=== PATIENT | male | born 2000 | race Two or more races ===

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

== ENCOUNTER 2020-03-31 12:51 | Emergency (ER) | payer OTHER ==
[2020-03-31 12:59] VITALS: BP 129/71; PULSE 89; RESP 18; TEMP 98
[2020-03-31] MEDS ORDERED: hydrOXYzine HCL 25 MG TAB PO STA (13:16)
[2020-03-31] MEDS ORDERED: PERMETHRIN 5% CREAM 60 GM TUBE TOPICAL ONE (13:16)
[2020-03-31] MEDS ORDERED: dexAMETHasone 4 MG TAB PO STA (13:16)
[2020-03-31] MEDS ORDERED: FAMOTIDINE 20 MG TAB PO STA (13:16)
--- NOTE | 2020-03-31 13:19 | ED ---
Skin/Abscess/FB HPI - General Chief complaint: Skin/Abscess/Foreign Body Stated complaint: rash Time Seen by Provider: 03/31/20 13:09 Source: patient, RN notes reviewed, old records reviewed Mode of arrival: ambulatory Limitations: no limitations - History of Present Illness Initial comments: This is a 20-year-old male presents today for evaluation of rash patient is rash both hands body groin anterior chest areas of his back. 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 MD complaint: rash -: days(s) Tetanus Up to Date: unsure Location: chest, L hand, R hand, buttocks, genitals Severity: moderate Severity scale (1-10): 7 Consistency: constant Improves with: none, immobilization Context: none - Related Data Home Medications Medication Instructions Recorded Confirmed Acetaminophen Tab [Tylenol Tab] 650 mg PO Q6H PRN 10/02/18 10/02/18 Previous Rx's Medication Instructions Recorded Amoxicillin 500 mg PO Q12HR 10 Days #20 cap 10/02/18 hydrOXYzine HCL [Atarax] 25 mg PO TID PRN #30 tab 03/31/20 Allergies Allergy/AdvReac Type Severity Reaction Status Date / Time No Known Allergies Allergy Verified 03/31/20 12:59 Review of Systems ROS Statement: Those systems with pertinent positive or pertinent negative responses have been documented in the HPI. ROS Other: All systems not noted in ROS Statement are negative. Past Medical History Past Medical History: No Reported History History of Any Multi-Drug Resistant Organisms: None Reported Past Surgical History: No Surgical Hx Reported Past Psychological History: Bipolar Smoking Status: Vaper Past Alcohol Use History: Rare Past Drug Use History: Marijuana General Exam - General Exam Comments Initial Comments: Patient does have scabies like rash in between fingers and groin area on anterior abdomen and chest severely pruritic and itching Limitations: no limitations General appearance: alert, in no apparent distress Head exam: Present: atraumatic, normocephalic, normal inspection Eye exam: Present: normal appearance, PERRL, EOMI. Absent: scleral icterus, conjunctival injection, periorbital swelling ENT exam: Present: normal exam, mucous membranes moist Neck exam: Present: normal inspection. Absent: tenderness, meningismus, lymphadenopathy Respiratory exam: Present: normal lung sounds bilaterally. Absent: respiratory distress, wheezes, rales, rhonchi, stridor Cardiovascular Exam: Present: regular rate, normal rhythm, normal heart sounds. Absent: systolic murmur, diastolic murmur, rubs, gallop, clicks GI/Abdominal exam: Present: soft, normal bowel sounds. Absent: distended, tenderness, guarding, rebound, rigid Extremities exam: Present: normal inspection, full ROM, normal capillary refill. Absent: tenderness, pedal edema, joint swelling, calf tenderness Back exam: Present: normal inspection Neurological exam: Present: alert, oriented X3, CN II-XII intact Psychiatric exam: Present: normal affect, normal mood Skin exam: Present: warm, dry, intact, normal color. Absent: rash Course Vital Signs 03/31/20 12:56 Temperature 98 F Pulse Rate 89 Respiratory 18 Rate Blood Pressure 129/71 O2 Sat by Pulse 100 Oximetry - Reevaluation(s) Reevaluation #1: 03/31/20 13:17 Medical records reviewed Reevaluation #2: 03/31/20 13:18 Patient informed of findings, questions answered, understands 1 application Medical Decision Making - Medical Decision Making 20 male DF for evaluation of rash patient has scabies-like rash in between fingers and throughout body. Patient will be given medication here in the ER as well as itching medication. Patient can be discharged home Disposition Clinical Impression: Scabies Disposition: HOME SELF-CARE Condition: Good Instructions (If sedation given, give patient instructions): Scabies (ED) Prescriptions: hydrOXYzine HCL [Atarax] 25 mg PO TID PRN #30 tab PRN Reason: Itching Is patient prescribed a controlled substance at d/c from ED?: No Referrals: None,Stated [Primary Care Provider] - 1-2 days
== END 2020-03-31 13:56 | disposition home or self-care (01) ==
LOC: EC 12:51
DX: B86 Scabies (principal); F17.290 Nicotine dependence, other tobacco product, uncomplicated
CPT/HCPCS: 99283; J8540

== ENCOUNTER 2020-04-18 09:19 | Emergency (ER) | payer OTHER ==
[2020-04-18 09:26] VITALS: BP 129/79; PULSE 99; RESP 18; TEMP 97.1
[2020-04-18] MEDS ORDERED: predniSONE 50 MG TAB PO STA (09:41)
--- NOTE | 2020-04-18 09:43 | ED ---
Skin/Abscess/FB HPI - General Chief complaint: Skin/Abscess/Foreign Body Stated complaint: rash Time Seen by Provider: 04/18/20 09:26 Source: patient Mode of arrival: ambulatory Limitations: no limitations - History of Present Illness Initial comments: 20yo male presenting to the ER today for cc of rash. Patient states he was concerned of bed bugs 2 weeks ago after using cream and itching medications it went away. He states it returned. He states that he used a tiny bit of the left over permethrin which seemed to improve the area slightly. Patient denies penile lesions, dysuria, headaches, fevers, cough, URI symptoms. Dneies odors from rash. Denies night sweats. Patient denies additional complaints. Upon arrival he appears well nontoxic, afebrile in no acute distress. - Related Data Home Medications Medication Instructions Recorded Confirmed No Known Home Medications 04/18/20 04/18/20 Previous Rx's Medication Instructions Recorded Permethrin 5% Cream [Elimite] 1 applic TOPICAL ONCE 1 Days #30 04/18/20 cream..g. predniSONE 50 mg PO DAILY 4 Days #4 tab 04/18/20 Allergies Allergy/AdvReac Type Severity Reaction Status Date / Time No Known Allergies Allergy Verified 04/18/20 09:40 Review of Systems ROS Statement: Those systems with pertinent positive or pertinent negative responses have been documented in the HPI. ROS Other: All systems not noted in ROS Statement are negative. Past Medical History Past Medical History: No Reported History History of Any Multi-Drug Resistant Organisms: None Reported Past Surgical History: No Surgical Hx Reported Past Psychological History: Bipolar Smoking Status: Vaper Past Alcohol Use History: Rare Past Drug Use History: Marijuana General Exam - General Exam Comments Initial Comments: General: The patient is awake and alert, in no distress Eye:+3 mm pupils are equal, round and reactive to light, extra-ocular movements are intact. No nystagmus. There is normal conjunctiva bilaterally. No signs of icterus. Ears, nose, mouth and throat: There are moist mucous membranes and no oral lesions. Neck: The neck is supple, there is no tenderness or JVD. Cardiovascular: There is a regular rate and rhythm. No murmur, rub or gallop is appreciated. Respiratory: Lungs are clear to auscultation, respirations are non-labored, breath sounds are equal. No wheezes, stridor, rales, or rhonchi. Gastrointestinal: Soft, non-distended, non-tender abdomen without masses or organomegaly noted. There is no rebound or guarding present. Musculoskeletal: Normal ROM, no tenderness. Strength 5/5. Sensation intact. Radial pulses equal bilaterally 2+. Neurological: A&O x 3. CN II-XII intact grossly, There are no obvious motor or sensory deficits. Coordination appears grossly intact. Speech is normal. Skin: Skin is warm and dry. Contingueous erythematous/excoriated regions in grown nonscaling, does not appear moist, no odors. There is a different more linear appearing rash in the armpits and dorsum of the hands b/l. No palm involvement, no sole involvement, between index and middle finger. Psychiatric: Cooperative, appropriate mood & affect, normal judgment. Limitations: no limitations Course Vital Signs 04/18/20 09:20 Temperature 97.1 F L Pulse Rate 99 Respiratory 18 Rate Blood Pressure 129/79 O2 Sat by Pulse 100 Oximetry Medical Decision Making - Medical Decision Making Permetherin and hydoxizine helped in past. Patient states he recently used a small amount of permethrin on a small patch and it seemed to significantly improved the area. Patient rash appears nonspecific but there is involvment between fingers. does not appear bacternia nor fungal. will attempt steroids/permethrin after discussing case with Selene De La Garza. Patient is to f/u with dermatology as well PCP. patient discharged appearing well. Disposition Clinical Impression: Rash Disposition: HOME SELF-CARE Condition: Good Additional Instructions: Please use medication as discussed. Please follow-up with family doctor in the next 2 days, please seek evaluation by dermatology. Please return to emergency room if the symptoms increase or worsen or for any other concerns. Prescriptions: Permethrin 5% Cream [Elimite] 1 applic TOPICAL ONCE 1 Days #30 cream..g. predniSONE 50 mg PO DAILY 4 Days #4 tab Is patient prescribed a controlled substance at d/c from ED?: No Referrals: None,Stated [Primary Care Provider] - 1-2 days Rochelle Mayer MD [STAFF PHYSICIAN] - 1-2 days [facility] [NON-STAFF] - 1-2 days Time of Disposition: 09:42
== END 2020-04-18 09:47 | disposition home or self-care (01) ==
LOC: EC 09:19
DX: R21 Rash and other nonspecific skin eruption (principal); F17.290 Nicotine dependence, other tobacco product, uncomplicated
CPT/HCPCS: 99282; J7512